=== PATIENT | female | born 1950 | race Two or more races ===

== ENCOUNTER 2024-03-23 13:58 | Emergency (ER) | payer MEDICAID, OTHER ==
[~2024-03-23] VITALS: Ht 149.9 cm; Wt 52.0 kg
[2024-03-23] MEDS: IOHEXOL 350 MG/ML 100ML IJ ONE (16:06)
[2024-03-23 16:24] LABS: Basophils # (auto) 0 10 ^3/uL (0-0.2); Basophils % (auto) 0.2 % (0.0-2.0); Eosinophils # (auto) 0 10 ^3/uL (0-0.8); Eosinophils % (auto) 0.1 % (0.0-7.0); Hematocrit 40.7 % (36.0-46.0); Hemoglobin 13.8 g/dL (12.2-16.2); Lymphocytes # (auto) 1.8 10 ^3/uL (0.4-5.4); Lymphocytes % (auto) 16.1 % (10.0-50.0); Mean Corpuscular Hemoglobin 30.2 pg (28.0-32.0); Mean Corpuscular Volume 88.8 fL (80.0-100.0); Monocytes % (auto) 9.1 % (0.0-12.0); Neutrophils # (auto) 8.3 10 ^3/uL (1.6-8.6); Neutrophils % (auto) 74.5 % (37.0-80.0); Platelet Count (auto) 318 10^3/uL (140-450); Red Blood Cells 4.58 10^6/uL (4.0-5.20); Red Cell Distribution Width 13.2 % (11.8-14.3); White Blood Cell 11.1 10^3/uL (4.4-10.8)
[2024-03-23 16:37] LABS: Alanine Aminotransferase 13 U/L (7-40); Albumin 4.4 g/dL (3.2-4.8); Alkaline Phosphatase 110 U/L (46-116); Anion Gap 10 (5-15); BUN/Creatinine Ratio 22.6 (10.0-20.0); Blood Urea Nitrogen 21 mg/dL (9-23); Calcium 10.3 mg/dL (8.7-10.4); Carbon Dioxide 28 mmol/L (20-31); Chloride 99 mmol/L (98-107); Magnesium 1.8 mg/dL (1.6-2.6); Potassium 4.3 mmol/L (3.5-5.1); Sodium 137 mmol/L (136-145)
[2024-03-23 16:38] LABS: Bilirubin, Total 0.9 mg/dL (0.2-1.0)
[2024-03-23 16:40] LABS: Aspartate Aminotransferase 9 U/L (13-40); Glucose 309 mg/dL (74-106)
--- NOTE | 2024-03-23 16:55 | ED.PDOC ---
HPI (NEURO) HPI Comments HPI: Poor Historian. History obtained from patient and the son. 33-year-old female presents to emergency department for evaluation of three day history of posterior neck and suboccipital pain with the associated bilateral shoulder discomfort and some mild sore throat. Patient complains of some weakness and occasional lightheadedness. VITALS: Temp: 98.1F RR: 16 02 sat : 96 % on room air HR: 106 BP: 116/85 PMH: DM, PSH: x2 Social history: denies tobacco use, denies ETOH use, denies drug use Medications: unknown Allergies: penicillins, REVIEW OF SYSTEMS: CONSTITUTIONAL: Denies acute: fever, diaphoresis, chills, HEAD: Denies acute: photophobia Eyes: Denies acute: Double vision, vision loss, eye pain, eye discharge. EARS: Denies acute: tinnitus, hearing loss, ear discharge, ear pain, THROAT: Denies acute: swelling, difficulty swallowing , pain with swallowing, change in voice. NECK: Denies acute: neck pain, neck swelling, stiff neck. HEART: Denies acute : chest pain, palpitations, LUNGS: Denies acute: SOB, wheezing, cough, hemoptysis ABDOMEN: Denies acute: abdominal pain, Nausea, Vomiting, diarrhea, melena , hematemesis, hematochezia SKIN: Denies acute: rash, redness, lesions, itchiness. EXTREMITIES: Denies acute: calf pain, numbness, tingling, weakness, denies pain in extremity. Denies acute: Low back pain. Neuro: Denies acute: focal neurological deficit, motor or sensory focal neurological deficit, tremors, seizure like activity, confusion, dizziness, change in mental status, loss of bowel or bladder function, cauda equina like symptoms. : Denies acute: dysuria, hematuria, flank pain, increase in urinary frequency. PSYCH: Denies acute: hallucination, suicidal ideation, homicidal ideation. FEMALE: Denies acute: abnormal vaginal bleeding, foul odor, unusual discharge. PHYSICAL EXAM: General: no acute distress, awake and alert. Head: normocephalic, atraumatic. Neck: supple, trachea is midline, no swelling. No submandibular lymphadenopathy Cervical spine: Palpation of the posterior midline of the cervical spine revea ls no focal swelling, erythema, focal tenderness to palpation. Patient has normal range of motion. Throat: Normal phonation. No erythema, no exudates, no obstruction, no drooling, no swelling. Eyes:, no erythema, no purulent discharge, no proptosis, no icterus. Heart: regular rate, regular rhythm, no significant murmur appreciated. Lungs: no apparent respiratory distress, Able to speak in full sentences. No wheezing, no rhonchi, no crackles. No stridors Clear to auscultation bilaterally. Abdomen: non tender to palpation, non distended, soft, no guarding, no rebound, + bowel sounds. Neuro: Awake, Alert, oriented to name, self, situation, follows commands GCS=15. Speech is normal. Skin: no petechia, no purpura, no cyanosis, non-pale, not jaundice. Lower extremities: --trace bilateral - Pitting edema no deformity, no focal swelling, no calf TTP. Makes eye contact. moves all four extremities. Face: no apparent facial droop. No nuchal rigidity, Kernig's sign, Brudzinski's sign, no meningeal signs. Chief Complaint: Headache Time Seen by MD: 14:25 Primary Care Provider: NOEL Reviewed Notes: Nurses Notes, Allergies Information Source: Patient, Relative Mode of Arrival: Wheelchair Brought in by: son Past Medical History PAST MEDICAL HISTORY: DM Was a procedure done? Was a procedure done?: No X-Ray, Labs, Meds, VS Vital Signs Date Time Temp Pulse Resp B/P (MAP) Pulse Ox O2 Delivery O2 Flow Rate FiO2 03/23/24 20:47 100.1 107 18 143/69 (93) 98 100.1 03/23/24 20:47 107 18 98 Room Air 03/23/24 20:30 100.1 03/23/24 15:00 98.1 106 16 166/85 (112) 96 Lab Test 03/23/24 20:21 03/23/24 20:15 03/23/24 18:00 03/23/24 15:50 Range/Units Influenza Type A Antigen Negative Negative Influenza Type B Antigen Negative Negative SARS-CoV-2 Antigen (Rapid) Negative NEGATIVE Group A Streptococcus Rapid Negative Urine Color Yellow Yellow Urine Clarity Clear Clear Urine pH 6.5 5.0-9.0 Urine Specific [place] > 1.035 H 1.001-1.035 Urine Protein 2+ H Negative Urine Ketones Trace Negative Urine Blood 1+ H Negative /uL Urine Nitrite Negative Negative Urine Bilirubin Negative Negative Urine Urobilinogen Normal Negative mg/dL Urine Leukocyte Esterase Negative Negative /uL Urine RBC 14 0 - 4 /hpf Urine WBC 2 0 - 5 /hpf Urine Squamous Epithelial Cells Few <5 /hpf Urine Bacteria Few H None Seen /hpf Urine Glucose 3+ H Normal mg/dL Troponin I High Sensitivity 3 L 3 L </=34 ng/L White Blood Count 11.1 H 4.4-10.8 10^3/uL Red Blood Count 4.58 4.0-5.20 10^6/uL Hemoglobin 13.8 12.2-16.2 g/dL Hematocrit 40.7 36.0-46.0 % Mean Corpuscular Volume 88.8 80.0-100.0 fL Mean Corpuscular Hemoglobin 30.2 28.0-32.0 pg Mean Corpuscular Hemoglobin Concent 34.0 32.0-36.0 g/dL Red Cell Distribution Width 13.2 11.8-14.3 % Platelet Count 318 140-450 10^3/uL Mean Platelet Volume 7.9 6.9-10.8 fL Neutrophils (%) (Auto) 74.5 37.0-80.0 % Lymphocytes (%) (Auto) 16.1 10.0-50.0 % Monocytes (%) (Auto) 9.1 0.0-12.0 % Eosinophils (%) (Auto) 0.1 0.0-7.0 % Basophils (%) (Auto) 0.2 0.0-2.0 % Neutrophils # (Auto) 8.3 1.6-8.6 10 ^3/uL Lymphocytes # (Auto) 1.8 0.4-5.4 10 ^3/uL Monocytes # (Auto) 1.0 0-1.3 10 ^3/uL Eosinophils # (Auto) 0 0-0.8 10 ^3/uL Basophils # (Auto) 0 0-0.2 10 ^3/uL Nucleated Red Blood Cells 0.0 % Sodium Level 137 136-145 mmol/L Potassium Level 4.3 3.5-5.1 mmol/L Chloride Level 99 98-107 mmol/L Carbon Dioxide Level 28 20-31 mmol/L Anion Gap 10 5-15 Blood Urea Nitrogen 21 9-23 mg/dL Creatinine 0.93 0.550-1.02 mg/dL Glomerular Filtration Rate Calc 65 >90 mL/min BUN/Creatinine Ratio 22.6 H 10.0-20.0 Serum Glucose 309 H 74-106 mg/dL Lactic Acid Level 1.2 0.4-2.0 mmol/L Calcium Level 10.3 8.7-10.4 mg/dL Magnesium Level 1.8 1.6-2.6 mg/dL Total Bilirubin 0.9 0.2-1.0 mg/dL Aspartate Amino Transferase (AST) 9 L 13-40 U/L Alanine Aminotransferase (ALT) 13 7-40 U/L Alkaline Phosphatase 110 46-116 U/L Total Protein 7.0 5.7-8.2 g/dL Albumin 4.4 3.2-4.8 g/dL Current Medications Medications (Trade) Dose Ordered Sig/Jesse Route Start Time Stop Time Status Last Admin Acetaminophen (Tylenol Tablet) 650 mg ONCE ONCE PO 03/23/24 20:30 03/23/24 20:31 DC 03/23/24 20:30 Sodium Chloride 1,000 ml @ 1,000 mls/hr Q1H ONCE IV 03/23/24 20:30 03/23/24 21:29 DC 03/23/24 20:34 [place] [address] Ph: [phone] DIAGNOSTIC IMAGING Diagnostic Imaging Report : [id number] Signed PATIENT: GAYLE HOUACCT: [id number] UNIT: [id number] : 1950 LOC: ER ROOM / BED: / AGE / SEX: 73 / F ADM STATUS: REG ER SERVICE 1551 ORDERING PHYSICIAN: ANNA MANUEL DO PROCEDURE(s): Anghedneck - ANGIO HEAD/Neck REASON: CHEN ORDER NUMBER(s): [id number], ACCESSION NUMBER(s): [id number] INDICATION: CHEN COMPARISON: CT head 03/23/2024 TECHNIQUE:CTA head and neck with intravenous contrast. 3D/MIP image postprocessing was performed and images were used for interpretation and reporting. Radiation Dose Information: CT Dose: CTDI volume is 7.76 mGy. Dose-length product is 778.53 mGy*cm FINDINGS: CTA neck: There is normal 3-vessel origin left-sided aortic arch. The bilateral subclavian arteries unremarkable. Nydo-ld-wcrjzgkl atherosclerotic calcification of the left proximal ICA without hemodynamically significant stenosis. Otherwise, bilateral common carotid arteries and bilateral cervical ICAs are unremarkable. Bilateral vertebral arteries unremarkable with left dominant vertebral artery. CTA HEAD: Bilateral ICAs, anterior communicating artery and bilateral MCAs unremarkable. Moderate to heavy atherosclerotic calcification of the cavernous ICAs with mild 2 moderate atherosclerotic calcification of the supraclinoid ICAs bilaterally. The petrous ICAs are clear. Bilateral music teacher, bilateral superior cerebellar arteries, basilar artery and right intracranial vertebral artery are unremarkable. Focal mild narrowing of the left proximal intracranial vertebral artery. Otherwise, the left intracranial vertebral artery is unremarkable and dominant. The dural venous sinuses opacify normally. No abnormal intracranial enhancement. Mild mucoperiosteal thickening of the ethmoid air cells. IMPRESSION: Moderate to heavy atherosclerotic calcification of the cavernous ICAs bilaterally with dcrr-wv-psqgefic atherosclerotic calcification of bilateral supraclinoid iCAs. Otherwise, no hemodynamically significant stenosis, aneurysm or vascular malformation involving the major intracranial and neck vessels. ATED BY: AMY TELLO DO DICTATED DATE/TIME: 03/23/241728 SIGNED BY: AMY TELLO DO SIGNED DATE/TIME: 03/23/241728 CC: [place] [address] Ph: [phone] DIAGNOSTIC IMAGING Diagnostic Imaging Report : [id number] Signed PATIENT: GAYLE HOUACCT: [id number] UNIT: [id number] : 1950 LOC: ER ROOM / BED: / AGE / SEX: 73 / F ADM STATUS: REG ER SERVICE 1551 ORDERING PHYSICIAN: ANNA MANUEL DO PROCEDURE(s): CTH - STROKE CTH REASON: CHEN ORDER NUMBER(s): [id number], ACCESSION NUMBER(s): [id number] EXAM: CT STROKE CTH INDICATION: CHEN TECHNIQUE: CT of the head without intravenous contrast. Radiation Dose : 1. Head: CT Dose: CTDI volume is 48.66 mGy. Dose-length product is 780.26 mGy*cm The dose indicators for CT are the volume Computed Tomography (CT) Dose Index (CTDIvol) and the Dose Length Product (DLP), and are measured in units of mGy and mGy-cm, respectively. These indicators are not patient dose, but values generated from the CT scanner acquisition factors. The report includes radiation exposure data for exposures received during this examination. COMPARISON: None FINDINGS: There is no evidence of acute intracranial hemorrhage, extra-axial collection, mass effect, midline shift, herniation or hydrocephalus. The ventricles, sulci and cisterns are age appropriate. The quan-white differentiation is intact. Patchy periventricular and subcortical white matter hypoattenuation is nonspecific but may be related to small vessel ischemic disease. The visualized paranasal sinuses and mastoid air cells are clear. The surrounding soft tissues and osseous structures are unremarkable. IMPRESSION: No acute intracranial abnormality. Radiation optimization: All CT scans at this facility use at least one of these dose optimization techniques: automated exposure control mA and/or kV adjustment per patient size (includes targeted exams where dose is matched to clinical indication) or iterative reconstruction. ATED BY: BENY LANIER MD DICTATED DATE/TIME: 03/23/241704 SIGNED BY: BENY LANIER MD SIGNED DATE/TIME: 03/23/241704 CC: [place] [address] Ph: [phone] DIAGNOSTIC IMAGING Diagnostic Imaging Report : [id number] Signed PATIENT: GAYLE HOUACCT: [id number] UNIT: [id number] : 1950 LOC: ER ROOM / BED: / AGE / SEX: 73 / F ADM STATUS: REG ER SERVICE 1550 ORDERING PHYSICIAN: ANNA MANUEL DO PROCEDURE(s): CXRP - CHEST PORTABLE REASON: CHEN HTN ORDER NUMBER(s): [id number], ACCESSION NUMBER(s): [id number] CHEST RADIOGRAPH Indication: CHEN HTN Technique: Single frontal view of the chest was obtained COMPARISON: None FINDINGS: Lines and Tubes: None Lungs: Clear Pleura: No effusion. No pneumothorax. Cardiomediastinal contours: Unremarkable Bones: Unremarkable IMPRESSION: No acute disease. ATED BY: BENY LANIER MD DICTATED DATE/TIME: 03/23/241716 SIGNED BY: BENY LANIER MD SIGNED DATE/TIME: 03/23/241716 CC: Time of 1ST Reevaluation: 21:29 Reevaluation 1ST: Resolved Patient Education/Counseling: Diagnosis, Treatment Family Education/Counseling: Diagnosis, Treatment Comments MDM: Patient presented with the above HPI.----- posterior neck and suboccipital pain -workup was initiated. patient was found with the above mentioned diagnosis. the following medications were ordered: IV contrast the following tests were ordered: CT angio head and neck, CT head CVA, troponin x3, EKG x 1, chest x-ray, UA, magnesium, lactic acid, CBC, CMP, Patient ED course and VS have been stabilized. Patient has been reassessed in the ED and remained in a stable condition. Patient has been observed in the ED adequate length of time to insure improvement/stability. Escalation of care considered: Consideration of escalation to observation or admission. patient was DISCHARGED after further evaluation and treatment of their presentation. All the reports of any imaging studies that were ordered by myself were reviewed by myself. Departure 1 Departure Time of Disposition: 20:19 Impression: Primary Impression: Headache Additional Impressions: Sore throat Hyperglycemia Disposition: 01 HOME / SELF CARE / HOMELESS Admit to: Tele Condition: Stable Additional Instructions: Additional discharge instructions: You MUST follow-up with your primary care/family doctor in 1 to 2 days. If you are unable to see your primary care/family doctor, please return to our emergency room for re-assessment and re-evaluation in 1 to 2 days. Return to the emergency room here in our facility or to the nearest ER [facility] if your symptoms change or worsen. CONSULTATIONS: you MUST Follow-up for consultation as soon as possible with: -neurology and ENT in 1-2 days. Please call for appointment. You MUST call the consultants office yourself to make an appointment. You may need to arrange that through your insurance and/or your primary/family doctor. If you are unable to see the economic consultant in 1 to 2 days, you must return to our emergency room (or any other ER of your choice) for re-assessment and re- evaluation. Adequate fluid hydration. Below is a copy of your radiological report for follow up: [place] [phone] Ph: [phone] DIAGNOSTIC IMAGING Diagnostic Imaging Report : [id number] Signed PATIENT: GAYLE HOU ACCT: [id number] UNIT: [id number] : 1950 LOC: ER ROOM / BED: / AGE / SEX: 73 / F ADM STATUS: REG ER SERVICE 1551 ORDERING PHYSICIAN: ANNA MANUEL DO PROCEDURE(s): Anghedneck - ANGIO HEAD/Neck REASON: CHEN ORDER NUMBER(s): [id number], ACCESSION NUMBER(s): [id number] INDICATION: CHEN COMPARISON: CT head 03/23/2024 TECHNIQUE:CTA head and neck with intravenous contrast. 3D/MIP image postprocessing was performed and images were used for interpretation and reporting. Radiation Dose Information: CT Dose: CTDI volume is 7.76 mGy. Dose-length product is 778.53 mGy*cm FINDINGS: CTA neck: There is normal 3-vessel origin left-sided aortic arch. The bilateral subclavian arteries unremarkable. Tzop-ur-ybdoibse atherosclerotic calcification of the left proximal ICA without hemodynamically significant stenosis. Otherwise, bilateral common carotid arteries and bilateral cervical ICAs are unremarkable. Bilateral vertebral arteries unremarkable with left dominant vertebral artery. CTA HEAD: Bilateral ICAs, anterior communicating artery and bilateral MCAs unremarkable. Moderate to heavy atherosclerotic calcification of the cavernous ICAs with mild 2 moderate atherosclerotic calcification of the supraclinoid ICAs bilaterally. The petrous ICAs are clear. Bilateral music teacher, bilateral superior cerebellar arteries, basilar artery and right intracranial vertebral artery are unremarkable. Focal mild narrowing of the left proximal intracranial vertebral artery. Otherwise, the left intracranial vertebral artery is unremarkable and dominant. The dural venous sinuses opacify normally. No abnormal intracranial enhancement. Mild mucoperiosteal thickening of the ethmoid air cells. IMPRESSION: Moderate to heavy atherosclerotic calcification of the cavernous ICAs bandar aterally with amqq-av-utdelsxg atherosclerotic calcification of bilateral supraclinoid iCAs. Otherwise, no hemodynamically significant stenosis, aneurysm or vascular malformation involving the major intracranial and neck vessels. ATED BY: AMY TELLO DO DICTATED DATE/TIME: 03/23/241728 SIGNED BY: AMY TELLO DO SIGNED DATE/TIME: 03/23/241728 CC: [place] [address] Ph: [phone] DIAGNOSTIC IMAGING Diagnostic Imaging Report : [id number] Signed PATIENT: GAYLE HOU ACCT: [id number] UNIT: [id number] : 1950 LOC: ER ROOM / BED: / AGE / SEX: 73 / F ADM STATUS: REG ER SERVICE 1551 ORDERING PHYSICIAN: ANNA MANUEL DO PROCEDURE(s): CTH - STROKE CTH REASON: CHEN ORDER NUMBER(s): [id number], ACCESSION NUMBER(s): [id number] EXAM: CT STROKE CTH INDICATION: CHEN TECHNIQUE: CT of the head without intravenous contrast. Radiation Dose : 1. Head: CT Dose: CTDI volume is 48.66 mGy. Dose-length product is 780.26 mGy*cm The dose indicators for CT are the volume Computed Tomography (CT) Dose Index (CTDIvol) and the Dose Length Product (DLP), and are measured in units of mGy and mGy-cm, respectively. These indicators are not patient dose, but values generated from the CT scanner acquisition factors. The report includes radiation exposure data for exposures received during this examination. COMPARISON: None FINDINGS: There is no evidence of acute intracranial hemorrhage, extra-axial collection, mass effect, midline shift, herniation or hydrocephalus. The ventricles, sulci and cisterns are age appropriate. The quan-white differentiation is intact. Patchy periventricular and subcortical white matter hypoattenuation is nonspecific but may be related to small vessel ischemic disease. The visualized paranasal sinuses and mastoid air cells are clear. The surrounding soft tissues and osseous structures are unremarkable. IMPRESSION: No acute intracranial abnormality. Radiation optimization: All CT scans at this facility use at least one of these dose optimization techniques: automated exposure control mA and/or kV adjustment per patient size (includes targeted exams where dose is matched to clinical indication) or iterative reconstruction. ATED BY: BENY LANIER MD DICTATED DATE/TIME: 03/23/241704 SIGNED BY: BENY LANIER MD SIGNED DATE/TIME: 03/23/241704 CC: [place] [address] Ph: [phone] DIAGNOSTIC IMAGING Diagnostic Imaging Report : [id number] Signed PATIENT: GAYLE HOU ACCT: [id number] UNIT: [id number] : 1950 LOC: ER ROOM / BED: / AGE / SEX: 73 / F ADM STATUS: REG ER SERVICE 1550 ORDERING PHYSICIAN: ANNA MANUEL DO PROCEDURE(s): CXRP - CHEST PORTABLE REASON: CHEN HTN ORDER NUMBER(s): [id number], ACCESSION NUMBER(s): [id number] CHEST RADIOGRAPH Indication: CHEN HTN Technique: Single frontal view of the chest was obtained COMPARISON: None FINDINGS: Lines and Tubes: None Lungs: Clear Pleura: No effusion. No pneumothorax. Cardiomediastinal contours: Unremarkable Bones: Unremarkable IMPRESSION: No acute disease. ATED BY: BENY LANIER MD DICTATED DATE/TIME: 03/23/241716 SIGNED BY: BENY LANIER MD SIGNED DATE/TIME: 03/23/241716 CC: e-Prescriptions Cephalexin Monohydrate (Cephalexin) 500 Mg Cap 500 MG PO Q8HR for 7 Days, #14 MG Prov: ANNA MANUEL DO 03/23/24 Discharged With: Self, Relative I personally scribed for ANNA MANUEL DO ([facility]) on 03/23/24 at 16:55. El ectronically submitted by Pelon Pineda (AMY). I personally scribed for ANNA MANUEL DO ([facility]) on 03/23/24 at 17:35. Electronically submitted by Pelon Pineda (AMY). I personally scribed for ANNA MANUEL DO ([facility]) on 03/23/24 at 17:37. Electronically [facility] by [facility]ined[facility] ([facility] I personally scribed for ANNA MANUEL DO ([facility]) on 03/23/24 at 17:41. Electronically submitted by Pelon Pineda ([facility] I personally scribed for ANNA MANUEL DO ([facility]) on 03/23/24 at 21:18. Electronically submitted by Pelon Pineda ([facility] I personally scribed for ANNA MANUEL DO ([facility]) on 03/23/24 at 21:45. Electronically submitted by Pelon Pineda ([facility]). ANNA MANUEL DO Mar 23, 2024 16:55
--- NOTE | 2024-03-23 17:09 | DVH ---
EXAM: CT STROKE CTH INDICATION: CHEN TECHNIQUE: CT of the head without intravenous contrast. Radiation Dose : 1. Head: CT Dose: CTDI volume is 48.66 mGy. Dose-length product is 780.26 mGy*cm The dose indicators for CT are the volume Computed Tomography (CT) Dose Index (CTDIvol) and the Dose Length Product (DLP), and are measured in units of mGy and mGy-cm, respectively. These indicators are not patient dose, but values generated from the CT scanner acquisition factors. The report includes radiation exposure data for exposures received during this examination. COMPARISON: None FINDINGS: There is no evidence of acute intracranial hemorrhage, extra-axial collection, mass effect, midline s hift, herniation or hydrocephalus. The ventricles, sulci and cisterns are age appropriate. The quan-white differentiation is intact. Patchy periventricular and subcortical white matter hypoattenuation is nonspecific but may be related to small vessel ischemic disease. The visualized paranasal sinuses and mastoid air cells are clear. The surrounding soft tissues and osseous structures are unremarkable. IMPRESSION: No acute intracranial abnormality. Radiation optimization: All CT scans at this facility use at least one of these dose optimization kushal hniques: automated exposure control mA and/or kV adjustment per patient size (includes targeted exam s where dose is matched to clinical indication) or iterative reconstruction.
--- NOTE | 2024-03-23 17:20 | DVH ---
CHEST RADIOGRAPH Indication: CHEN HTN Technique: Single frontal view of the chest was obtained COMPARISON: None FINDINGS: Lines and Tubes: None Lungs: Clear Pleura: No effusion. No pneumothorax. Cardiomediastinal contours: Unremarkable Bones: Unremarkable IMPRESSION: No acute disease.
--- NOTE | 2024-03-23 17:31 | DVH ---
INDICATION: CHEN COMPARISON: CT head 03/23/2024 TECHNIQUE:CTA head and neck with intravenous contrast. 3D/MIP image postprocessing was performed and images were used for interpretation and reporting. Radiation Dose Information: CT Dose: CTDI volume is 7.76 mGy. Dose-length product is 778.53 mGy*cm FINDINGS: CTA neck: There is normal 3-vessel origin left-sided aortic arch. The bilateral subclavian arteries unremarkabl e. Sadg-go-nfjzlieh atherosclerotic calcification of the left proximal ICA without hemodynamically sign ificant stenosis. Otherwise, bilateral common carotid arteries and bilateral cervical ICAs are unrem arkable. Bilateral vertebral arteries unremarkable with left dominant vertebral artery. CTA HEAD: Bilateral ICAs, anterior communicating artery and bilateral MCAs unremarkable. Moderate to heavy atherosclerotic calcification of the cavernous ICAs with mild 2 moderate atheroscle rotic calcification of the supraclinoid ICAs bilaterally. The petrous ICAs are clear. Bilateral office sweeper, bilateral superior cerebellar arteries, basilar artery and right intracranial vertebr al artery are unremarkable. Focal mild narrowing of the left proximal intracranial vertebral artery. Otherwise, the left intracranial vertebral artery is unremarkable and dominant. The dural venous sinuses opacify normally. No abnormal intracranial enhancement. Mild mucoperiosteal thickening of the ethmoid air cells. IMPRESSION: Moderate to heavy atherosclerotic calcification of the cavernous ICAs bilaterally with whuy-te-gsbihg te atherosclerotic calcification of bilateral supraclinoid iCAs. Otherwise, no hemodynamically signif icant stenosis, aneurysm or vascular malformation involving the major intracranial and neck vessels.
[2024-03-23] MEDS ORDERED: HYDROcodone-ACET 5/325MG TAB PO ONE (19:45)
[2024-03-23] MEDS: cefTRIAXone 1GM/50ML D5W 50 ML IV ONE (20:30)
[2024-03-23] MEDS: ACETAMINOPHEN 325 MG TAB PO ONE (20:30)
[2024-03-23] MEDS: SODIUM CHLORIDE 0.9% 1,000 ML IV ONE (20:34)
[2024-03-23 20:47] VITALS: BP 143/69; PULSE 107; RESP 18; O2SAT 98
[2024-03-23 20:59] LABS: Urine Bacteria FEW /hpf (None Seen); Urine Blood 1+ /uL (Negative); Urine Clarity Clear (Clear); Urine Color Yellow (Yellow); Urine Protein, UAD 2+ (Negative); Urine Specific Gravity > 1.035 (1.001-1.035); Urine Urobilinogen Normal (Negative); Urine WBC 2 /hpf (0 - 5); Urine pH 6.5 (5.0-9.0)
[2024-03-23 21:11] LABS: Rapid Strep A Screen-Throat Negative
[2024-03-23 21:12] LABS: COVID19 ANTIGEN SOFIA FIA NEGATIVE (NEGATIVE); Rapid Influenza A Negative (Negative); Rapid Influenza B Negative (Negative)
[2024-03-23 21:30] VITALS: TEMP 98.5
[2024-03-23] MEDS ORDERED: CEPH500C PO (21:44)
== END 2024-03-23 22:21 | disposition home or self-care (01) ==
LOC: ER 13:58
DX: E11.65 Type 2 diabetes mellitus with hyperglycemia (principal); J02.9 Acute pharyngitis, unspecified; R51.9 Headache, unspecified; Z88.0 Allergy status to penicillin; Z98.890 Other specified postprocedural states; Z20.822 Contact with and (suspected) exposure to COVID-19
CPT/HCPCS: 36415; 70450; 70496; 71045; 80053; 81001; 83605; 83735; 84484; 85025; 87070; 87426; 87804; 87880; 96360; 96361; 99285; J7030; Q9967; 87077

== ENCOUNTER → 2024-05-21 | Outpatient (CLI) | payer MEDICAID ==
[~2024-05-21] MED LIST: CEPH500C PO
[2024-05-21 11:17] LABS: Basophils # (auto) 0 10 ^3/uL (0-0.2); Basophils % (auto) 0.5 % (0.0-2.0); Eosinophils # (auto) 0.3 10 ^3/uL (0-0.8); Eosinophils % (auto) 4.2 % (0.0-7.0); Hematocrit 40.1 % (36.0-46.0); Hemoglobin 13.5 g/dL (12.2-16.2); Lymphocytes # (auto) 2.7 10 ^3/uL (0.4-5.4); Lymphocytes % (auto) 43.2 % (10.0-50.0); Mean Corpuscular Hemoglobin 29.5 pg (28.0-32.0); Mean Corpuscular Hgb Conc. 33.6 g/dL (32.0-36.0); Monocytes # (auto) 0.6 10 ^3/uL (0-1.3); Neutrophils # (auto) 2.7 10 ^3/uL (1.6-8.6); Neutrophils % (auto) 43.1 % (37.0-80.0); Nucleated Red Blood Cells % 0.2 %; Platelet Count (auto) 228 10^3/uL (140-450); Red Blood Cells 4.56 10^6/uL (4.0-5.20); Red Cell Distribution Width 13.7 % (11.8-14.3); White Blood Cell 6.2 10^3/uL (4.4-10.8)
[2024-05-21 11:51] LABS: Alanine Aminotransferase 13 U/L (7-40); Anion Gap 8 (5-15); Aspartate Aminotransferase 14 U/L (13-40); Blood Urea Nitrogen 21 mg/dL (9-23); Carbon Dioxide 27 mmol/L (20-31); Chloride 103 mmol/L (98-107); Potassium 4.1 mmol/L (3.5-5.1); Sodium 138 mmol/L (136-145)
[2024-05-21 11:53] LABS: Albumin 4.4 g/dL (3.2-4.8)
[2024-05-21 11:54] LABS: Bilirubin, Total 0.6 mg/dL (0.2-1.0); Total Protein 6.6 g/dL (5.7-8.2)
[2024-05-21 12:03] LABS: Calcium 10.5 mg/dL (8.7-10.4); Glucose 146 mg/dL (74-106)
[2024-05-21 12:30] LABS: Alkaline Phosphatase 87 U/L (46-116)
[2024-05-22 13:33] LABS: Triglycerides 96 mg/dL (< 150)
[2024-05-22 13:34] LABS: Cholesterol 190 mg/dL (< 200)
[2024-05-22 13:37] LABS: HDL Cholesterol 66 mg/dL (40-59); LDL Cholesterol 109 mg/dL (< 100)
== END | disposition home or self-care (01) ==
LOC: LAB 09:54
DX: I12.9 Hypertensive chronic kidney disease with stage 1 through stage 4 chronic kidney disease, or unspecified chronic kidney disease (principal); N18.30 Chronic kidney disease, stage 3 unspecified; E11.22 Type 2 diabetes mellitus with diabetic chronic kidney disease; E11.65 Type 2 diabetes mellitus with hyperglycemia; E78.5 Hyperlipidemia, unspecified
CPT/HCPCS: 36415; 80053; 80061; 82043; 83036; 85025

== ENCOUNTER 2024-07-17 15:46 | Inpatient (IN) | payer MEDICAID ==
[~2024-07-17] VITALS: Ht 154.9 cm; Wt 52.3 kg
--- NOTE | 2024-07-17 16:04 | ED.PDOC ---
History of Present Illness HPI Comments HPI: Poor Historian. 74-year-old female presents to emergency department for evaluation of two day history of generalized weakness with the associated nonspecific dizziness. The patient unable to get up and ambulate secondary to weakness. Patient went to urgent Care was sent here for further evaluation. Patient has some associated nausea and vomiting nonbilious nonbloody. Denies any focal neurological deficits. Past Medical History: Diabetes hypertension Past Surgical History: REVIEW OF SYSTEMS: CONSTITUTIONAL: Denies acute: fever, diaphoresis, chills, HEAD: Denies acute: headache, photophobia Eyes: Denies acute: Double vision, vision loss, eye pain, eye discharge. EARS: Denies acute: tinnitus, hearing loss, ear discharge, ear pain, THROAT: Denies acute: sore throat, swelling, difficulty swallowing , pain with swallowing, change in voice. NECK: Denies acute: neck pain, neck swelling, stiff neck. HEART: Denies acute : chest pain, palpitations, LUNGS: Denies acute: SOB, wheezing, cough, hemoptysis ABDOMEN: Denies acute: abdominal pain, diarrhea, melena , hematemesis, hematochezia SKIN: Denies acute: rash, redness, lesions, itchiness. EXTREMITIES: Denies acute: calf pain, numbness, tingling, weakness, denies pain in extremity. Denies acute: Low back pain. Neuro: Denies acute: focal neurological deficit, motor or sensory focal neurological deficit, tremors, seizure like activity, confusion, change in mental status, loss of bowel or bladder function, cauda equina like symptoms. : Denies acute: dysuria, hematuria, flank pain, increase in urinary frequency. PSYCH: Denies acute: hallucination, suicidal ideation, homicidal ideation. FEMALE: Denies acute: abnormal vaginal bleeding, foul odor, unusual discharge. PHYSICAL EXAM: General: ----mild----acute distress, awake and alert. Head: normocephalic, atraumatic. Neck: supple, trachea is midline, no swelling. Throat: Normal phonation. Eyes:, no erythema, no purulent discharge, no proptosis, no icterus. Heart: regular rate, regular rhythm, no significant murmur appreciated. Lungs: no apparent respiratory distress, Able to speak in full sentences. No wheezing, no rhonchi, no crackles. No stridors Clear to auscultation bilaterally. Abdomen: non tender to palpation, non distended, soft, no guarding, no rebound, + bowel sounds. Neuro: Awake, Alert, oriented to name, self, situation, follows commands GCS=15. Speech is normal. Skin: no petechia, no purpura, no cyanosis, slightly pale, not jaundice. Lower extremities: --no - Pitting edema no deformity, no focal swelling, no calf TTP. Makes eye contact. moves all four extremities. Able to raise bilateral lower extremities against gravity and hold it. Face: no apparent facial droop. PERRLA, EOM-I CN 2-12 are grossly intact, No nystagmus. ED COURSE: Time Seen by MD: 16:01 Primary Care Provider: NOEL Reviewed Notes: Nurses Notes, Allergies Allergies: Coded Allergies: Penicillins (Verified Allergy, Unknown, 03/23/24) Home Meds Active Scripts Cephalexin Monohydrate (Cephalexin) 500 Mg Cap, 500 MG PO Q8HR for 7 Days, #14 MG Prov:KALEBANNA Lofton DO 03/23/24 Information Source: Patient, Relative Past Medical History PAST MEDICAL HISTORY: DM Was a procedure done? Was a procedure done?: No Differential Dx Considerations may include: Includes but not limited to thyroid disease, encephalopathy, electrolyte abnormality, sepsis, infection, intracranial pathology, drug adverse effects, arrhythmia, kidney insufficiency, ACS, CVA, malignancy, anemia X-Ray, Labs, Meds, VS Vital Signs Date Time Temp Pulse Resp B/P (MAP) Pulse Ox O2 Delivery O2 Flow Rate FiO2 07/17/24 20:58 97.8 72 16 117/70 (86) 95 97.8 07/17/24 16:47 94 07/17/24 16:39 98.2 93 20 130/69 (89) 98 98.2 Lab Test 07/17/24 19:50 07/17/24 19:19 07/17/24 17:26 07/17/24 16:40 Range/Units Urine Color Yellow Yellow Urine Clarity Clear Clear Urine pH 5.5 5.0-9.0 Urine Specific [place] 1.026 1.001-1.035 Urine Protein 1+ H Negative Urine Ketones 1+ H Negative Urine Blood Negative Negative /uL Urine Nitrite Negative Negative Urine Bilirubin Negative Negative Urine Urobilinogen Normal Negative mg/dL Urine Leukocyte Esterase Negative Negative /uL Urine RBC 2 0 - 4 /hpf Urine Microscopic WBC 3 0-5 /HPF Urine Squamous Epithelial Cells Few <5 /hpf Urine Bacteria None seen None Seen /hpf Urine Mucus Few None Seen Urine Glucose 4+ H Normal mg/dL Troponin I High Sensitivity 5 7 </=34 ng/L POC Glucose 260 H 70-106 mg/dl Test 07/17/24 16:16 Range/Units White Blood Count 7.9 4.4-10.8 10^3/uL Red Blood Count 5.07 4.0-5.20 10^6/uL Hemoglobin 15.1 12.2-16.2 g/dL Hematocrit 45.1 36.0-46.0 % Mean Corpuscular Volume 88.9 80.0-100.0 fL Mean Corpuscular Hemoglobin 29.8 28.0-32.0 pg Mean Corpuscular Hemoglobin Concent 33.5 32.0-36.0 g/dL Red Cell Distribution Width 13.9 11.8-14.3 % Platelet Count 226 140-450 10^3/uL Mean Platelet Volume 8.5 6.9-10.8 fL Neutrophils (%) (Auto) 86.6 H 37.0-80.0 % Lymphocytes (%) (Auto) 10.8 10.0-50.0 % Monocytes (%) (Auto) 2.4 0.0-12.0 % Eosinophils (%) (Auto) 0.1 0.0-7.0 % Basophils (%) (Auto) 0.1 0.0-2.0 % Neutrophils # (Auto) 6.9 1.6-8.6 10 ^3/uL Lymphocytes # (Auto) 0.9 0.4-5.4 10 ^3/uL Monocytes # (Auto) 0.2 0-1.3 10 ^3/uL Eosinophils # (Auto) 0 0-0.8 10 ^3/uL Basophils # (Auto) 0 0-0.2 10 ^3/uL Nucleated Red Blood Cells 0.0 % Sodium Level 138 136-145 mmol/L Potassium Level 4.1 3.5-5.1 mmol/L Chloride Level 103 98-107 mmol/L Carbon Dioxide Level 27 20-31 mmol/L Anion Gap 8 5-15 Blood Urea Nitrogen 17 9-23 mg/dL Creatinine 0.83 0.550-1.02 mg/dL Glomerular Filtration Rate Calc 73 >90 mL/min BUN/Creatinine Ratio 20.5 H 10.0-20.0 Serum Glucose 283 H 74-106 mg/dL Lactic Acid Level 1.3 0.4-2.0 mmol/L Calcium Level 10.4 8.7-10.4 mg/dL Magnesium Level 2.0 1.6-2.6 mg/dL Total Bilirubin 0.7 0.2-1.0 mg/dL Aspartate Amino Transferase (AST) 14 13-40 U/L Alanine Aminotransferase (ALT) 14 7-40 U/L Alkaline Phosphatase 111 46-116 U/L Troponin I High Sensitivity 5 </=34 ng/L B-Type Natriuretic Peptide 39.36 0-100 pg/mL Total Protein 7.5 5.7-8.2 g/dL Albumin 4.7 3.2-4.8 g/dL Current Medications Medications (Trade) Dose Ordered Sig/Jesse Route Start Time Stop Time Status Last Admin Sodium Chloride 1,000 ml @ 1,000 mls/hr Q1H ONCE IV 07/17/24 18:15 07/17/24 19:14 DC 07/17/24 18:15 [place] [address] Ph: [phone] DIAGNOSTIC IMAGING Diagnostic Imaging Report : [id number] Signed PATIENT: GAYLE PHILLIPS ACCT: [id number] UNIT: [id number] : 1950 LOC: CENTRAL ROOM / BED: [address] [place] [address] AGE / SEX: 74 / F ADM STATUS: ADM IN SERVICE 1218 ORDERING PHYSICIAN: TIM VARGHESE RESIDENT PROCEDURE(s): [place] - ANGIO HEAD/Neck REASON: rule out posterior circulation stroke ORDER NUMBER(s): [id number], ACCESSION NUMBER(s): [id number] Procedure: CT ANGIO HEAD/Neck HISTORY: rule out posterior circulation stroke Comparison Study: CT ANGIO HEAD/NECK on DOS: 03/23/24 Exam Date:07/18/2024 12:57 PM TECHNIQUE: CTA head without and with intravenous contrast. CTA neck with intravenous contrast. 3D image postprocessing was performed and images were used for interpretation and reporting. Radiation Dose : CT Dose: CTDI volume is 32.31 mGy. Dose-length product is 1048.98 mGy*cm FINDINGS: CTA head: There is normal enhancement of the visualized distal internal carotid, anterior and middle cerebral arteries. There is a normal anterior communicating artery complex. There are bilateral posterior communicating arteries. The vertebral, basilar, cerebellar and posterior cerebral arteries are within normal limits. The early parenchymal enhancement is grossly unremarkable. The visualized intr acranial venous structures are grossly unremarkable. CTA neck: The visualized thoracic aortic arch and proximal great vessels are unremarkable. The left common, internal and external carotid arteries are within normal limits. The right common, internal and external carotid arteries are within normal limits. The cervical segments of the right and left vertebral arteries are within normal limits. The limited visualized lung apices are clear. The surrounding soft tissues and osseous structures are otherwise unremarkable. IMPRESSION: No evidence of hemodynamically significant intracranial stenosis, proximal occlusion or aneurysm. No evidence of hemodynamically significant cervical stenosis or dissection. CAROTID STENOSIS REFERENCE Distal internal carotid artery diameter as the denominator for stenosis measurement: MILD = <50% stenosis. MODERATE = 50-69% stenosis. SEVERE = 70-89% stenosis. CRITICAL = 90-99% stenosis. OCCLUDED = 100% stenosis. All CT scans at this medical facility are performed using dose modulation techniques as appropriate to a performed exam including the following: Automated exposure control was utilized; adjustment of the MA and/or KV according to patient size; and use of iterative reconstruction technique. ATED BY: MEENA MIRELES MD DICTATED DATE/TIME: 07/18/241424 SIGNED BY: MEENA MIRELES MD SIGNED DATE/TIME: 07/18/241424 CC: [place] [address] Ph: [phone] DIAGNOSTIC IMAGING Diagnostic Imaging Report : [id number] Signed PATIENT: GAYLE PHILLIPS ACCT: [id number] UNIT: [id number] : 1950 LOC: ER ROOM / BED: / AGE / SEX: 74 / F ADM STATUS: REG ER SERVICE 1557 ORDERING PHYSICIAN: ANNA MANUEL DO PROCEDURE(s): HWOCT - HEAD WITHOUT CONTRAST REASON: weak/dizzy/n/v ORDER NUMBER(s): [id number], ACCESSION NUMBER(s): [id number] EXAM: CT HEAD WITHOUT CONTRAST INDICATION: weak/dizzy/n/v TECHNIQUE: CT of the head without intravenous contrast. Radiation Dose : 1. Head: CT Dose: CTDI volume is 51 mGy. Dose-length product is 101 mGy*cm The dose indicators for CT are the volume Computed Tomography (CT) Dose Index (CTDIvol) and the Dose Length Product (DLP), and are measured in units of mGy and mGy-cm, respectively. These indicators are not patient dose, but values generated from the CT scanner acquisition factors. The report includes radiation exposure data for exposures received during this examination. COMPARISON: CT STROKE CTH on DOS: 03/23/24 FINDINGS: There is no evidence of acute intracranial hemorrhage, extra-axial collection, mass effect, midline shift, herniation or hydrocephalus. The ventricles, sulci and cisterns are age appropriate. The quan-white differentiation is intact. The visualized paranasal sinuses and mastoid air cells are clear. The surrounding soft tissues and osseous structures are unremarkable. IMPRESSION: No acute intracranial abnormality. Radiation optimization: All CT scans at this facility use at least one of these dose optimization techniques: automated exposure control mA and/or kV adjustment per patient size (includes targeted exams where dose is matched to clinical indication) or iterative reconstruction. ATED BY: BENY LANIER MD DICTATED DATE/TIME: 07/17/241643 SIGNED BY: BENY LANIER MD SIGNED DATE/TIME: 07/17/241643 CC: [place] [address] Ph: [phone] DIAGNOSTIC IMAGING Diagnostic Imaging Report : [id number] Signed PATIENT: KEITH TODDLESPAUL ACCT: [id number] UNIT: [id number] : 1950 LOC: ER ROOM / BED: / AGE / SEX: 74 / F ADM STATUS: REG ER SERVICE 1557 ORDERING PHYSICIAN: ANNA MANUEL DO PROCEDURE(s): CXRP - CHEST PORTABLE REASON: weak/dizzy/n/v ORDER NUMBER(s): [id number], ACCESSION NUMBER(s): [id number] CHEST RADIOGRAPH Indication: weak/dizzy/n/v Technique: Single frontal view of the chest was obtained COMPARISON: XY CHEST PORTABLE on DOS: 03/23/24 FINDINGS: Lines and Tubes: None Lungs: Clear Pleura: No effusion. No pneumothorax. Cardiomediastinal contours: Unremarkable Bones: Unremarkable IMPRESSION: No acute disease. ATED BY: BENY LANIER MD DICTATED DATE/TIME: 07/17/24 1638 SIGNED BY: BENY LANIER MD SIGNED DATE/TIME: 07/17/248 CC: Time of 1ST Reevaluation: 00:00 Reevaluation 1ST: Improved Patient Education/Counseling: Diagnosis, Treatment Family Education/Counseling: Diagnosis, Treatment Comments Patient presented with the above HPI.--generalized weakness----workup was initiated. patient was found with the above mentioned diagnosis. the following medications were ordered: please refer to order lists of meds and tests obtained by myself Dr. Manuel. Patient ED course and VS have been stabilized. Patient has been reassessed in the ED and remained in a stable condition. Pertinent incidental findings were discussed with the patient and/or family. Patient/family voices understanding and is agreeable with plan. Patient has been observed in the ED adequate length of time to insure improvement/stability. Escalation of care considered: Consideration of escalation to observation or admission Patient has no apparent focal neurological deficits. Onset of symptoms at least two days ago. Patient was ADMITTED to the medicine team for further evaluation and treatment of their presentation. All the reports of any imaging studies that were ordered by myself were reviewed by myself. Departure 1 Departure Time of Disposition: 19:48 Impression: Primary Impression: Generalized weakness Additional Impression: Dizziness Disposition: ADMITTED INPATIENT Admit to: Tele Condition: Guarded Discharged With: Self, Relative Critical Care Note Critical Care Time?: No Heart Score Heart Score: Heart Score Response (Comments) Value History Slightly Suspicious 0 EKG Normal 0 Age >65 2 Risk Factors 1 or 2 risk factors 1 Troponin Normal limit 0 Total 3 ANNA MANUEL DO Jul 17, 2024 16:04
[2024-07-17 16:34] LABS: Basophils # (auto) 0 10 ^3/uL (0-0.2); Basophils % (auto) 0.1 % (0.0-2.0); Eosinophils # (auto) 0 10 ^3/uL (0-0.8); Eosinophils % (auto) 0.1 % (0.0-7.0); Hematocrit 45.1 % (36.0-46.0); Hemoglobin 15.1 g/dL (12.2-16.2); Lymphocytes # (auto) 0.9 10 ^3/uL (0.4-5.4); Lymphocytes % (auto) 10.8 % (10.0-50.0); Mean Corpuscular Hemoglobin 29.8 pg (28.0-32.0); Mean Corpuscular Hgb Conc. 33.5 g/dL (32.0-36.0); Mean Corpuscular Volume 88.9 fL (80.0-100.0); Monocytes # (auto) 0.2 10 ^3/uL (0-1.3); Monocytes % (auto) 2.4 % (0.0-12.0); Neutrophils # (auto) 6.9 10 ^3/uL (1.6-8.6); Neutrophils % (auto) 86.6 % (37.0-80.0); Platelet Count (auto) 226 10^3/uL (140-450); Red Blood Cells 5.07 10^6/uL (4.0-5.20); Red Cell Distribution Width 13.9 % (11.8-14.3); White Blood Cell 7.9 10^3/uL (4.4-10.8)
--- NOTE | 2024-07-17 16:41 | DVH ---
CHEST RADIOGRAPH Indication: weak/dizzy/n/v Technique: Single frontal view of the chest was obtained COMPARISON: XY CHEST PORTABLE on DOS: 03/23/24 FINDINGS: Lines and Tubes: None Lungs: Clear Pleura: No effusion. No pneumothorax. Cardiomediastinal contours: Unremarkable Bones: Unremarkable IMPRESSION: No acute disease.
[2024-07-17 16:46] LABS: Alanine Aminotransferase 14 U/L (7-40); Albumin 4.7 g/dL (3.2-4.8); Alkaline Phosphatase 111 U/L (46-116); Anion Gap 8 (5-15); Aspartate Aminotransferase 14 U/L (13-40); BUN/Creatinine Ratio 20.5 (10.0-20.0); Bilirubin, Total 0.7 mg/dL (0.2-1.0); Blood Urea Nitrogen 17 mg/dL (9-23); Calcium 10.4 mg/dL (8.7-10.4); Carbon Dioxide 27 mmol/L (20-31); Chloride 103 mmol/L (98-107); Potassium 4.1 mmol/L (3.5-5.1); Sodium 138 mmol/L (136-145); Total Protein 7.5 g/dL (5.7-8.2)
--- NOTE | 2024-07-17 16:47 | DVH ---
EXAM: CT HEAD WITHOUT CONTRAST INDICATION: weak/dizzy/n/v TECHNIQUE: CT of the head without intravenous contrast. Radiation Dose : 1. Head: CT Dose: CTDI volume is 51 mGy. Dose-length product is 101 mGy*cm The dose indicators for CT are the volume Computed Tomography (CT) Dose Index (CTDIvol) and the Dose Length Product (DLP), and are measured in units of mGy and mGy-cm, respectively. These indicators are not patient dose, but values generated from the CT scanner acquisition factors. The report includes radiation exposure data for exposures received during this examination. COMPARISON: CT STROKE CTH on DOS: 03/23/24 FINDINGS: There is no evidence of acute intracranial hemorrhage, extra-axial collection, mass effect, midline s hift, herniation or hydrocephalus. The ventricles, sulci and cisterns are age appropriate. The quan-white differentiation is intact. The visualized paranasal sinuses and mastoid air cells are clear. The surrounding soft tissues and osseous structures are unremarkable. IMPRESSION: No acute intracranial abnormality. Radiation optimization: All CT scans at this facility use at least one of these dose optimization kushal hniques: automated exposure control mA and/or kV adjustment per patient size (includes targeted exam s where dose is matched to clinical indication) or iterative reconstruction.
[2024-07-17 16:55] LABS: Glucose 283 mg/dL (74-106)
[2024-07-17] MEDS: SODIUM CHLORIDE 0.9% 1,000 ML IV ONE (18:15)
[2024-07-17 20:28] LABS: Urine Bacteria None Seen /hpf (None Seen)
[2024-07-17 20:49] LABS: Urine Blood Negative /uL (Negative); Urine Clarity Clear (Clear); Urine Color Yellow (Yellow); Urine Mucus FEW (None Seen); Urine Protein, UAD 1+ (Negative); Urine Specific Gravity 1.026 (1.001-1.035); Urine Squamous Epithelial Cell FEW /hpf (<5); Urine Urobilinogen Normal (Negative); Urine WBC 3 /HPF (0-5); Urine pH 5.5 (5.0-9.0)
[2024-07-17 23:38] VITALS: PULSE 68; RESP 16; O2SAT 98
[2024-07-17] MEDS ORDERED: DEXTROSE (50%) 50ML SYRG IV PRN (23:45)
[2024-07-17] MEDS ORDERED: MECLIZINE HCL 25 MG TAB PO PRN (23:45)
[2024-07-17] MEDS ORDERED: ONDANSETRON HCL 4 MG/2 ML VIAL IV PRN (23:45)
[2024-07-17] MEDS ORDERED: ACETAMINOPHEN 325 MG TAB PO PRN (23:45)
--- NOTE | 2024-07-17 23:46 | DVHHPRES ---
History of Present Illness Resident Creating Document: ERNIE AARON RESIDENT History of Present Illness 74-year-old female with past medical history of diabetes and hypertension presented with complaints of dizziness that started yesterday morning, associated with tingling sensation in the right side of the ear and recurrent v omiting. Patient mentioned she had ear infection in March for which she was treated with antibiotics. She also mentioned associated mild right-sided headache. She denied any complaints of chest pain, shortness of breath, diarrhea, constipation Past medical history Diabetes, hypertension Past surgical history No recent surgery Medication history Metformin Allergic history Penicillins Review of Systems Constitutional: No: Fever, Chills, Sweats, Weakness, Malaise, Other Eyes: No: Pain, Vision change, Conjunctivae inflammation, Eyelid inflammation, Other, Redness ENT: Other (tingling senstation in the right ear); No: Ear discharge, Nose pain, Nose discharge, Nose congestion, Mouth pain, Mouth swelling, Throat pain, Throat swelling Respiratory: No: Cough, Dry, Shortness of breath, SOB with excertion, Wheezing, Hemoptysis, Pleuritic Pain, Sputum, Wheezing, Other Cardiovascular: No: Chest Pain, Palpitations, Orthopnea, Paroxysmal Noc. Dyspnea, Edema, Lt Headedness, Other Gastrointestinal: Nausea, Vomiting; No: Abdominal Pain, Diarrhea, Constipation, Melena, Hematochezia, Other Genitourinary: No Dysuria, No Frequency, No Incontinence, No Hematuria, No Retention, No Other Musculoskeletal: No: other, neck pain, shoulder pain, arm pain, back pain, hand pain, leg pain, foot pain Skin: No: Rash, Lesions, Jaundice, Bruising, Other Neurological: No: Weakness, Numbness, Incoordination, Change in speech, Confusion, Seizures, Other Allergies: Coded Allergies: Penicillins (Verified Allergy, Unknown, 03/23/24) Exam Vital Signs Vital Signs Date Time Temp Pulse Resp B/P (MAP) Pulse Ox O2 Delivery O2 Flow Rate FiO2 07/17/24 20:58 97.8 72 16 117/70 (86) 95 97.8 Exam Complete physical examination could not be done because patient was in lobby General Appearance: Oriented X3 HEENT: Other (Patient had mild hearing deficit in the right side) Respiratory: Clear to auscultation Cardiovascular: Regular rate, Normal S1, Normal S2 Abdominal: Soft Labs/Xrays Labs Test 4/9/25 19:50 07/17/24 19:19 07/17/24 16:40 07/17/24 16:16 Range/Units Urine Color Yellow Yellow Urine Clarity Clear Clear Urine pH 5.5 5.0-9.0 Urine Specific [place] 1.026 1.001-1.035 Urine Protein 1+ H Negative Urine Ketones 1+ H Negative Urine Blood Negative Negative /uL Urine Nitrite Negative Negative Urine Bilirubin Negative Negative Urine Urobilinogen Normal Negative mg/dL Urine Leukocyte Esterase Negative Negative /uL Urine RBC 2 0 - 4 /hpf Urine Microscopic WBC 3 0-5 /HPF Urine Squamous Epithelial Cells Few <5 /hpf Urine Bacteria None seen None Seen /hpf Urine Mucus Few None Seen Urine Glucose 4+ H Normal mg/dL Troponin I High Sensitivity 5 </=34 ng/L POC Glucose 260 H 70-106 mg/dl White Blood Count 7.9 4.4-10.8 10^3/uL Red Blood Count 5.07 4.0-5.20 10^6/uL Hemoglobin 15.1 12.2-16.2 g/dL Hematocrit 45.1 36.0-46.0 % Mean Corpuscular Volume 88.9 80.0-100.0 fL Mean Corpuscular Hemoglobin 29.8 28.0-32.0 pg Mean Corpuscular Hemoglobin Concent 33.5 32.0-36.0 g/dL Red Cell Distribution Width 13.9 11.8-14.3 % Platelet Count 226 140-450 10^3/uL Mean Platelet Volume 8.5 6.9-10.8 fL Neutrophils (%) (Auto) 86.6 H 37.0-80.0 % Lymphocytes (%) (Auto) 10.8 10.0-50.0 % Monocytes (%) (Auto) 2.4 0.0-12.0 % Eosinophils (%) (Auto) 0.1 0.0-7.0 % Basophils (%) (Auto) 0.1 0.0-2.0 % Neutrophils # (Auto) 6.9 1.6-8.6 10 ^3/uL Lymphocytes # (Auto) 0.9 0.4-5.4 10 ^3/uL Monocytes # (Auto) 0.2 0-1.3 10 ^3/uL Eosinophils # (Auto) 0 0-0.8 10 ^3/uL Basophils # (Auto) 0 0-0.2 10 ^3/uL Nucleated Red Blood Cells 0.0 % Sodium Level 138 136-145 mmol/L Potassium Level 4.1 3.5-5.1 mmol/L Chloride Level 103 98-107 mmol/L Carbon Dioxide Level 27 20-31 mmol/L Anion Gap 8 5-15 Blood Urea Nitrogen 17 9-23 mg/dL Creatinine 0.83 0.550-1.02 mg/dL Glomerular Filtration Rate Calc 73 >90 mL/min BUN/Creatinine Ratio 20.5 H 10.0-20.0 Serum Glucose 283 H 74-106 mg/dL Lactic Acid Level 1.3 0.4-2.0 mmol/L Calcium Level 10.4 8.7-10.4 mg/dL Magnesium Level 2.0 1.6-2.6 mg/dL Total Bilirubin 0.7 0.2-1.0 mg/dL Aspartate Amino Transferase (AST) 14 13-40 U/L Alanine Aminotransferase (ALT) 14 7-40 U/L Alkaline Phosphatase 111 46-116 U/L B-Type Natriuretic Peptide 39.36 0-100 pg/mL Total Protein 7.5 5.7-8.2 g/dL Albumin 4.7 3.2-4.8 g/dL Assessment/Plan Assessment/Plan Assessment/plan #intractable vomiting with dizziness #Tingling sensation in the Ear with hearing deficit -likely peripheral cause of vertigo including acute labrynthitis/vestibular neuritis/meniers disease -orthostatic vitals -Head CT -TSH, B12, Folate -ondasetron PRN Meclizine PRN #DM2 -mild sliding scale -hbA1c #HTN -low normal BP Case discussion with Dr Heath Plan discussed with: Other My Orders Orders - ERNIE AARON RESIDENT Procedure Category Date Status Time Admit ADMIT 07/17/24 Transmitted 21:58 Oxygen By Nasal RT 07/17/24 Transmitted Cannula 21:58 Stat Ekg For Chest [facility] 07/17/24 In Process Pain 21:58 Notify Of Changes [facility] 07/17/24 In Process From Base 21:58 [employer] [facility] 07/17/24 In Process 24 Hours 21:58 Emergency Dysrhythmia [facility] 07/17/24 In Process Protocol 21:58 Rhythm Strips Once [place] 07/17/24 In Process Every Shift 21:58 Date of Service: Jul 17, 2024 Billing Provider: CRYSTAL HEATH MD Common Visit Codes: 31299-[id number] INP/OBS CARE (HIGH) Secondary Visit Codes: [id number] CARE PLAN 30 MINUTES ERNIE AARON RESIDENT Jul 17, 2024 23:46 CRYSTAL HEATH MD Jul 18, 2024 10:06
[2024-07-17] MEDS: ACCU-CHEK COMFORT CURVE STRIP VI SCH (23:48)
[2024-07-17] MEDS: InsuLIN REG 1unit/0.01ml Soln (100units/ml) SC SCH (23:53)
[2024-07-17] MEDS: MECLIZINE HCL 25 MG TAB PO ONE (23:53)
[2024-07-18] VITALS (9 sets, daily range): BP systolic 91–149; BP diastolic 45–80; PULSE 64–77; RESP 14–18; TEMP 97.9–98.4; O2SAT 95–100
[2024-07-18 01:03] LABS: Folate (Folic Acid) 17.45 ng/mL (>5.38)
--- NOTE | 2024-07-18 12:06 | ECG ---
[facility] Test Date: 2024-07-17 Test Time: 16:46:16 Pat Name: GAYLE ROMANO Department: ER Room: 0223 B Gender: F [employer] Systems Analyst: GP : 1950 Requested By: ANNA MANUEL Order Number: [id number] Reading MD: Bean Campos Measurements Intervals [place] Rate: 94 P: 80 IA: 128 QRS: 72 QRSD: 126 T: 22 QT: 400 QTc: 501 Interpretive Statements Sinus tachycardia Ventricular premature complex Right atrial enlargement Right bundle branch block Artifact in lead(s) I,II,III,aVR,aVL,aVF,V5 Electronically Signed On 07-18-2024 20:56:03 PDT by Bean Campos Please click the below link to view image of tracing.
[2024-07-18] MEDS: SODIUM CHLORIDE 0.9% 1,000 ML IV SCH (12:20)
[2024-07-18] MEDS ORDERED: IOHEXOL 350 MG/ML 100ML IJ ONE (12:39)
--- NOTE | 2024-07-18 14:28 | DVH ---
Procedure: CT ANGIO HEAD/Neck HISTORY: rule out posterior circulation stroke Comparison Study: CT ANGIO HEAD/NECK on DOS: 03/23/24 Exam Date:07/18/2024 12:57 PM TECHNIQUE: CTA head without and with intravenous contrast. CTA neck with intravenous contrast. 3D barbara Netrepid postprocessing was performed and images were used for interpretation and reporting. Radiation Dose : CT Dose: CTDI volume is 32.31 mGy. Dose-length product is 1048.98 mGy*cm FINDINGS: CTA head: There is normal enhancement of the visualized distal internal carotid, anterior and middle cerebral a rteries. There is a normal anterior communicating artery complex. There are bilateral posterior commu nicating arteries. The vertebral, basilar, cerebellar and posterior cerebral arteries are within norm al limits. The early parenchymal enhancement is grossly unremarkable. The visualized intracranial troy ous structures are grossly unremarkable. CTA neck: The visualized thoracic aortic arch and proximal great vessels are unremarkable. The left common, int ernal and external carotid arteries are within normal limits. The right common, internal and external carotid arteries are within normal limits. The cervical segments of the right and left vertebral art eries are within normal limits. The limited visualized lung apices are clear. The surrounding soft ti ssues and osseous structures are otherwise unremarkable. IMPRESSION: No evidence of hemodynamically significant intracranial stenosis, proximal occlusion or aneurysm. No evidence of hemodynamically significant cervical stenosis or dissection. CAROTID STENOSIS REFERENCE Distal internal carotid artery diameter as the denominator for stenosis measurement: MILD = <50% stenosis. MODERATE = 50-69% stenosis. SEVERE = 70-89% stenosis. CRITICAL = 90-99% stenosis. OCCLUDED = 100% stenosis. All CT scans at this medical facility are performed using dose modulation techniques as appropriate t o a performed exam including the following: Automated exposure control was utilized; adjustment of th e MA and/or KV according to patient size; and use of iterative reconstruction technique.
[2024-07-18] MEDS ORDERED: DEXTROSE (50%) 50ML SYRG IV PRN (15:15)
--- NOTE | 2024-07-18 16:50 | DVHPNRES ---
Progress Note Date Seen: Jul 18, 2024 Resident Creating Document: TIM VARGHESE RESIDENT Has the PT tested + for MRSA If YES, has PT been informed?: No Medical Necessity Reason Pt with a Central, PICC or Fol: No Medical Necessity Reason History and Physical 74-year-old female with past medical history of diabetes and hypertension presented with complaints of dizziness that started yesterday morning, associated with tingling sensation in the right side of the ear and recurrent vomiting. Patient mentioned she had ear infection in March for which she was treated with antibiotics. She also mentioned associated mild right-sided headache. She denied any complaints of chest pain, shortness of breath, diarrhea, constipation. Past medical history: Diabetes, hypertension Past surgical history : No recent surgery Medication history: Metformin Allergic history: Penicillins PN 07/18/2024 Patient is a 74 year old female with a past medical history of hypertension and diabetes currently on metformin but does not adhere to the antihypertensive medication. She presented to the ED yesterday after experiencing tinnitus, dizziness and vomiting. According to the patient, her symptoms began on Monday when started having dizziness and tinnitus. By Monday, her symptoms had gotten worse and she started vomiting as well. She reported vomitig at least 4-5 times but subsided at 6:30pm. Patient then presented to the ED for evaluation. Patient denies fever, recent viral infection, diplopia, loss of sense, any trauma to the head any tremors or any previous stroke. Note the patient mentioned that March of 2024 she had an ear infection in her right ear was managed with antibiotics and had resolved. Subjective Review of Systems Constitutional: Denies fever no chills no feeling of malaise, dizziness and tinnitus HEENT: right temporal headache; NO ear pain, ear discharges, conjunctivitis, nasal discharge throat pain Cardiovascular: Denies chest pain, palpitation, orthopnea, PND, or pedal edema Respiratory: Denies shortness of breath, cough cough, sputum production, hemoptysis, GI: Denies abdominal pain, nausea, vomiting, diarrhea, hematemesis, hematochezia, : Denies frequency, urgency, hematuria, Endocrine: Denies unintentional weight gain or weight loss, feeling of hot flashes, Alvin: Denies easy bruising, bleeding disorders, epistaxis Musculoskeletal: Denies joint pains, muscle aches Psych: No evidence of depression, opal, suicidal ideation Objective vital signs Vital Sign Date Time Temp Pulse Resp B/P (MAP) Pulse Ox O2 Delivery O2 Flow Rate FiO2 07/18/24 12:58 98.0 76 17 135/64 (87) 98 98.0 142/69 (93) 141/80 (100) 07/18/24 08:00 Room Air* 0 21 Total Intake and Output 07/17/24 07/17/24 07/18/24 15:00 23:00 07:00 Intake Total 25 ml Balance 25 ml medications Current Medications Medications Dose Ordered Sig/Jesse Route Start Time Stop Time Status Last Admin Dose Admin Diagnostic Test (Pha) 1 strip IQ4HR 07/18/24 00:00 07/18/24 12:01 1 STRIP Insulin Human Regular IQ4HR SC 07/18/24 00:00 07/18/24 12:00 2 UNITS Dextrose 50 ml UD PRN IV 07/17/24 23:45 Ondansetron HCl 4 mg Q6HPRN PRN IV 07/17/24 23:45 Meclizine HCl 12.5 mg [id number] PRN PO 07/17/24 23:45 Acetaminophen 650 mg Q4HP PRN PO 07/17/24 23:45 Sodium Chloride 1,000 ml @ 100 mls/hr Q10H IV 07/18/24 11:15 07/18/24 12:20 100 MLS/HR Examination General Appearance: Alert, Oriented X3, Cooperative, No acute distress HEENT: Atraumatic, PERRLA, EOMI, Mucous membrane moist/pink --> mild hearing loss on the right compared to the left. --> No diplopia --> Bulmaro Hallpike: Negative --> orthostatic negative --> Heel to shIin: negative --> [id number] test: unremarkable --> [id number] test (assess coordination and cerebellar function) unremarkable Respiratory: Clear to auscultation, Normal air movement Cardiovascular: Regular rate, Normal S1, Normal S2, No murmurs, no chest wall tenderness Abdominal: NO distention, no tenderness, bowel sounds present, no scars noted Extremities: No clubbing, No cyanosis, No edema, Normal pulses, No tenderness/swelling Skin: No rashes, No breakdown, No significant lesion Neuro: Normal gait, Normal speech, Strength at 5/5 X4 ext, Normal tone, Sensation intact, Cranial nerves 3-12 NL, Reflexes 2+ Psych/Mental Status: Mental status NL, Mood NL laboratory and microbiology Laboratory Tests 07/17/24 16:16 Test 07/17/24 16:16 Range/Units Serum Glucose 283 H 74-106 mg/dL Problem List/Assessment/Plan Problem List/Assessment/Plan Assessments Possible Meniere's disease --> intractable vomiting with dizziness --> Tinnitus with hearing deficit --> orthostatic vitals --> CT angio head checking for posterior circulation deficit: Unremarkable --> Ondasetron PRN Possible Labyrinthitis --> Tinnitus with hearing deficit -likely peripheral cause of vertigo including acute labrynthitis/vestibular neuritis/meniers disease --> Vomiting --> Meclizine PRN --> symptomatic management Ondasetron PRN Vestibular neuritis less likely Brainstem infarct --> Ruled out --> CT angio head checking for posterior circulation deficit: Unremarkable --> CT head; No acute intracranial abnormality. Uncontrolled diabetes mellitus --> Lantus 10 HS -->mild sliding scale --> HbA1c 9.4 HTN --> ranges between 91/46---142/69 --> No antihypertensive right now. Will continue to monitor Goal of care discussed for more than 25 minutes: Full code Case and plan discussed+ Dr. Ball Plan discussed with: Patient, Other My Orders My Orders Orders - TIM VARGHESE Procedure Category Date Status Time Sodium Chloride 0.9% PHA 07/18/24 In Process 11:15 Angio Head/Neck CT 07/18/24 Resulted 12:18 Consistent DIET 07/18/24 Transmitted Carb(Ccho)Diabetes Dinner Insulin Lantus PHA 07/18/24 Logged (Glargine) (Lantus) 22:00 Glucose Blood PHA 07/18/24 Logged (Accu-Chek Comfort 17:00 Insulin R (Human) PHA 07/18/24 Logged (Insulin R) 17:00 Dextrose 50% Syringe PHA 07/18/24 Logged 15:15 Date of Service: Jul 18, 2024 Billing Provider: STEPHANIE BALL MD Common Visit Codes: [id number] INP/OBS CARE(HIGH) TIM VARGHESE RESIDENT Jul 18, 2024 16:50 STEPHANIE BALL MD Jul 23, 2024 21:23
[2024-07-18] MEDS: ACCU-CHEK COMFORT CURVE STRIP VI SCH (17:00)
[2024-07-18] MEDS: InsuLIN REG 1unit/0.01ml Soln (100units/ml) SC SCH (17:37)
[2024-07-18] MEDS ORDERED: ATOR20TA50 PO (18:21)
[2024-07-18] MEDS ORDERED: METF-370 PO (18:21)
[2024-07-18] MEDS ORDERED: LISI10TA34 PO (18:21)
[2024-07-18] MEDS: INSULIN LANTUS (GLARGINE) 1 /0.01ml (100units/ml) SC SCH (22:53)
[2024-07-19] VITALS (7 sets, daily range): BP systolic 113–140; BP diastolic 47–65; PULSE 67–76; RESP 14–17; TEMP 97.3–98.1; O2SAT 94–100
[2024-07-19 07:05] LABS: Basophils # (auto) 0 10 ^3/uL (0-0.2); Basophils % (auto) 0.5 % (0.0-2.0); Eosinophils # (auto) 0.1 10 ^3/uL (0-0.8); Eosinophils % (auto) 0.7 % (0.0-7.0); Hematocrit 37.9 % (36.0-46.0); Hemoglobin 12.7 g/dL (12.2-16.2); Lymphocytes % (auto) 21.2 % (10.0-50.0); Mean Corpuscular Hemoglobin 30.3 pg (28.0-32.0); Mean Corpuscular Hgb Conc. 33.6 g/dL (32.0-36.0); Mean Corpuscular Volume 90.1 fL (80.0-100.0); Monocytes # (auto) 0.5 10 ^3/uL (0-1.3); Monocytes % (auto) 5.5 % (0.0-12.0); Neutrophils # (auto) 6.8 10 ^3/uL (1.6-8.6); Neutrophils % (auto) 72.1 % (37.0-80.0); Platelet Count (auto) 198 10^3/uL (140-450); White Blood Cell 9.4 10^3/uL (4.4-10.8)
[2024-07-19 07:17] LABS: Anion Gap 9 (5-15); Carbon Dioxide 24 mmol/L (20-31); Potassium 3.6 mmol/L (3.5-5.1); Sodium 142 mmol/L (136-145)
[2024-07-19 07:18] LABS: Calcium 9.5 mg/dL (8.7-10.4)
[2024-07-19 07:20] LABS: Chloride 109 mmol/L (98-107)
[2024-07-19 07:23] LABS: BUN/Creatinine Ratio 22.1 (10.0-20.0); Blood Urea Nitrogen 15 mg/dL (9-23); Glucose 93 mg/dL (74-106)
--- NOTE | 2024-07-19 13:34 | DVHPNRES ---
Progress Note Date Seen: Jul 19, 2024 Resident Creating Document: TIM VARGHESE RESIDENT Has the PT tested + for MRSA If YES, has PT been informed?: No Medical Necessity Reason Pt with a Central, PICC or Fol: No Medical Necessity Reason History and Physical 74-year-old female with past medical history of diabetes and hypertension presented with complaints of dizziness that started yesterday morning, associated with tingling sensation in the right side of the ear and recurrent vomiting. Patient mentioned she had ear infection in March for which she was treated with antibiotics. She also mentioned associated mild right-sided headache. She denied any complaints of chest pain, shortness of breath, diarrhea, constipation. Past medical history: Diabetes, hypertension Past surgical history : No recent surgery Medication history: Metformin Allergic history: Penicillins PN 07/18/2024 Patient is a 74 year old female with a past medical history of hypertension and diabetes currently on metformin but does not adhere to the antihypertensive medication. She presented to the ED yesterday after experiencing tinnitus, dizziness and vomiting. According to the patient, her symptoms began on Monday when started having dizziness and tinnitus. By Monday, her symptoms had gotten worse and she started vomiting as well. She reported vomitig at least 4-5 times but subsided at 6:30pm. Patient then presented to the ED for evaluation. Patient denies fever, recent viral infection, diplopia, loss of sense, any trauma to the head any tremors or any previous stroke. Note the patient mentioned that March of 2024 she had an ear infection in her right ear was managed with antibiotics and had resolved. Subjective Review of Systems Constitutional: Denies fever no chills no feeling of malaise HEENT: Denies headache, ear pain, ear discharges, conjunctivitis, nasal discharge throat pain Cardiovascular: Denies chest pain, palpitation, orthopnea, PND, or pedal edema Respiratory: Denies shortness of breath, cough cough, sputum production, hemoptysis, GI: Denies abdominal pain, nausea, vomiting, diarrhea, hematemesis, hematochezia, : Denies frequency, urgency, hematuria, Endocrine: Denies unintentional weight gain or weight loss, feeling of hot flashes, Alvin: Denies easy bruising, bleeding disorders, epistaxis Musculoskeletal: Denies joint pains, muscle aches Psych: No evidence of depression, opal, suicidal ideation Objective vital signs Vital Sign Date Time Temp Pulse Resp B/P (MAP) Pulse Ox O2 Delivery O2 Flow Rate FiO2 07/19/24 12:55 98.0 72 17 137/59 (85) 100 98.0 07/19/24 08:15 Room Air* 0 21 Total Intake and Output 07/18/24 07/18/24 07/19/24 15:00 23:00 07:00 Intake Total 200 ml 1800 ml Balance 200 ml 1800 ml medications Current Medications Medications Dose Ordered Sig/Jesse Route Start Time Stop Time Status Last Admin Dose Admin Ondansetron HCl 4 mg Q6HPRN PRN IV 07/17/24 23:45 Meclizine HCl 12.5 mg [id number] PRN PO 07/17/24 23:45 Acetaminophen 650 mg Q4HP PRN PO 07/17/24 23:45 Sodium Chloride 1,000 ml @ 100 mls/hr Q10H IV 07/18/24 11:15 07/19/24 00:41 100 MLS/HR Insulin Glargine 10 units HS SC 07/18/24 22:00 07/18/24 22:53 10 UNITS Diagnostic Test (Pha) 1 strip ACHS 07/18/24 17:00 07/19/24 11:42 1 STRIP Insulin Human Regular ACHS SC 07/18/24 17:00 07/19/24 11:42 4 UNITS Dextrose 50 ml UD PRN IV 07/18/24 15:15 Examination Constitutional: Denies fever no chills no feeling of malaise HEENT: Denies headache, ear pain, ear discharges, conjunctivitis, nasal discharge throat pain Cardiovascular: Denies chest pain, palpitation, orthopnea, PND, or pedal edema Respiratory: Denies shortness of breath, cough cough, sputum production, hemoptysis, GI: Denies abdominal pain, nausea, vomiting, diarrhea, hematemesis, hematochezia, : Denies frequency, urgency, hematuria, Endocrine: Denies unintentional weight gain or weight loss, feeling of hot flashes, Alvin: Denies easy bruising, bleeding disorders, epistaxis Musculoskeletal: Denies joint pains, muscle aches Psych: No evidence of depression, opal, suicidal ideation laboratory and microbiology Laboratory Tests 07/19/24 06:24 Test 07/19/24 06:24 Range/Units Serum Glucose 93 74-106 mg/dL Problem List/Assessment/Plan Problem List/Assessment/Plan Assessments Possible Meniere's disease --> intractable vomiting with dizziness --> Tinnitus with hearing deficit --> orthostatic vitals --> CT angio head checking for posterior circulation deficit: Unremarkable --> Ondasetron PRN Possible Labyrinthitis --> Tinnitus with hearing deficit -likely peripheral cause of vertigo including acute labrynthitis/vestibular neuritis/meniers disease --> Vomiting --> Meclizine PRN --> symptomatic management Ondasetron PRN Vestibular neuritis less likely Brainstem infarct --> Ruled out --> CT angio head checking for posterior circulation deficit: Unremarkable --> CT head; No acute intracranial abnormality. Uncontrolled diabetes mellitus --> Lantus 10 HS -->mild sliding scale --> HbA1c 9.4 HTN --> ranges between 91/46---142/69 --> No antihypertensive right now. Will continue to monitor Goal of care discussed for more than 25 minutes: Full code Case and plan discussed+ Dr. Olmstead Plan discussed with: Patient My Orders My Orders Orders - TIM VARGHESE RESIDENT Procedure Category Date Status Time Consistent DIET 07/18/24 Transmitted Carb(Ccho)Diabetes Dinner Insulin Lantus PHA 07/18/24 In Process (Glargine) (Lantus) 22:00 Glucose Blood PHA 07/18/24 In Process (Accu-Chek Comfort 17:00 Insulin R (Human) PHA 07/18/24 In Process (Insulin R) 17:00 Dextrose 50% Syringe PHA 07/18/24 In Process 15:15 Orthostatic Vital ORDERS 07/18/24 Transmitted Signs 16:02 Dietary Evaluation Review Comments: 1. Disagree with current diet, would remove Na2gm restriction for least-restrictive diet possible; consider [employer] cx given texture modification 2. Continue frequent POC BG checks, insulin for correction and glycemic control 3. Encourage continued good oral intakes >75% of meals 4. Pt would likely benefit from outpatient DM counseling w/ [facility] for increased support w/ dietary management given A1c 9.4% Expected Outcomes/Goals: Improved glycemic control, maintain adequate nutrition. TIM VARGHESE RESIDENT Jul 19, 2024 13:34
[2024-07-19] MEDS ORDERED: ONDANSETRON HCL 4 MG/2 ML VIAL IV PRN (13:45)
[2024-07-19] MEDS ORDERED: MECL12.586 PO (15:36)
--- NOTE | 2024-07-19 15:46 | DVHDSRES ---
Discharge Summary Date of Admission Resident Creating Document: TIM VARGHESE RESIDENT Jul 17, 2024 at 21:58 Date of Discharge: Jul 19, 2024 Admitting Diagnosis Tinnitus and dizziness Labs/Diagnostic Data: PATIENT: GAYLE PHILLIPS MACCT: [id number] UNIT: [id number] : 1950 LOC: CENTRAL ROOM / BED: [facility] / B AGE / SEX: 74 / F ADM STATUS: ADM IN SERVICE 1218 ORDERING PHYSICIAN: TIM VARGHESE PROCEDURE(s): [place] - ANGIO HEAD/Neck REASON: rule out posterior circulation stroke ORDER NUMBER(s): [id number], ACCESSION NUMBER(s): [id number] Procedure: CT ANGIO HEAD/Neck HISTORY: rule out posterior circulation stroke Comparison Study: CT ANGIO HEAD/NECK on DOS: 03/23/24 Exam Date:07/18/2024 12:57 PM TECHNIQUE: CTA head without and with intravenous contrast. CTA neck with intravenous contrast. 3D image postprocessing was performed and images were used for interpretation and reporting. Radiation Dose : CT Dose: CTDI volume is 32.31 mGy. Dose-length product is 1048.98 mGy*cm FINDINGS: CTA head: There is normal enhancement of the visualized distal internal carotid, anterior and middle cerebral arteries. There is a normal anterior communicating artery complex. There are bilateral posterior communicating arteries. The vertebral, basilar, cerebellar and posterior cerebral arteries are within normal limits. The early parenchymal enhancement is grossly unremarkable. The visualized intracranial venous structures are grossly unremarkable. CTA neck: The visualized thoracic aortic arch and proximal great vessels are unremarkable. The left common, internal and external carotid arteries are within normal limits. The right common, internal and external carotid arteries are within normal limits. The cervical segments of the right and left vertebral arteries are within normal limits. The limited visualized lung apices are clear. The surrounding soft tissues and osseous structures are otherwise unremarkable. IMPRESSION: No evidence of hemodynamically significant intracranial stenosis, proximal occlusion or aneurysm. No evidence of hemodynamically significant cervical stenosis or dissection. CAROTID STENOSIS REFERENCE Distal internal carotid artery diameter as the denominator for stenosis measurement: MILD = <50% stenosis. MODERATE = 50-69% stenosis. SEVERE = 70-89% stenosis. CRITICAL = 90-99% stenosis. OCCLUDED = 100% stenosis. All CT scans at this medical facility are performed using dose modulation techniques as appropriate to a performed exam including the following: Automated exposure control was utilized; adjustment of the MA and/or KV according to patient size; and use of iterative reconstruction technique. ATED BY: POP MIRELES MD DICTATED DATE/TIME: 07/18/24 1425 PATIENT: GAYLE PHILLIPS MACCT: [id number] UNIT: [id number] : 1950 LOC: ER ROOM / BED: / AGE / SEX: 74 / F ADM STATUS: REG ER SERVICE 1557 ORDERING PHYSICIAN: ANNA MANUEL DO PROCEDURE(s): HWOCT - HEAD WITHOUT CONTRAST REASON: weak/dizzy/n/v ORDER NUMBER(s): [id number], ACCESSION NUMBER(s): [id number] EXAM: CT HEAD WITHOUT CONTRAST INDICATION: weak/dizzy/n/v TECHNIQUE: CT of the head without intravenous contrast. Radiation Dose : 1. Head: CT Dose: CTDI volume is 51 mGy. Dose-length product is 101 mGy*cm The dose indicators for CT are the volume Computed Tomography (CT) Dose Index (CTDIvol) and the Dose Length Product (DLP), and are measured in units of mGy and mGy-cm, respectively. These indicators are not patient dose, but values generated from the CT scanner acquisition factors. The report includes radiation exposure data for exposures received during this examination. COMPARISON: CT STROKE CTH on DOS: 03/23/24 FINDINGS: There is no evidence of acute intracranial hemorrhage, extra-axial collection, mass effect, midline shift, herniation or hydrocephalus. The ventricles, sulci and cisterns are age appropriate. The quan-white differentiation is intact. The visualized paranasal sinuses and mastoid air cells are clear. The surrounding soft tissues and osseous structures are unremarkable. IMPRESSION: No acute intracranial abnormality. Radiation optimization: All CT scans at this facility use at least one of these dose optimization techniques: automated exposure control mA and/or kV adjustment per patient size (includes targeted exams where dose is matched to clinical indication) or iterative reconstruction. ATED BY: BENY LANIER MD DICTATED DATE/TIME: 07/17/24 1644 PATIENT: GAYLE PHILLIPS MACCT: [id number] UNIT: [id number] : 1950 LOC: ER ROOM / BED: / AGE / SEX: 74 / F ADM STATUS: REG ER SERVICE 1557 ORDERING PHYSICIAN: ANNA MANUEL DO PROCEDURE(s): CXRP - CHEST PORTABLE REASON: weak/dizzy/n/v ORDER NUMBER(s): [id number], ACCESSION NUMBER(s): [id number] CHEST RADIOGRAPH Indication: weak/dizzy/n/v Technique: Single frontal view of the chest was obtained COMPARISON: XY CHEST PORTABLE on DOS: 03/23/24 FINDINGS: Lines and Tubes: None Lungs: Clear Pleura: No effusion. No pneumothorax. Cardiomediastinal contours: Unremarkable Bones: Unremarkable IMPRESSION: No acute disease. ATED BY: BENY LANIER MD DICTATED DATE/TIME: 07/17/24 1638 Laboratory Results Test 07/19/24 11:31 07/19/24 06:24 07/18/24 00:15 07/17/24 19:50 POC Glucose 236 mg/dl (70-106) White Blood Count 9.4 10^3/uL (4.4-10.8) Red Blood Count 4.20 10^6/uL (4.0-5.20) Hemoglobin 12.7 g/dL (12.2-16.2) Hematocrit 37.9 % (36.0-46.0) Mean Corpuscular Volume 90.1 fL (80.0-100.0) Mean Corpuscular Hemoglobin 30.3 pg (28.0-32.0) Mean Corpuscular Hemoglobin Concent 33.6 g/dL (32.0-36.0) Red Cell Distribution Width 14.0 % (11.8-14.3) Platelet Count 198 10^3/uL (140-450) Mean Platelet Volume 8.3 fL (6.9-10.8) Neutrophils (%) (Auto) 72.1 % (37.0-80.0) Lymphocytes (%) (Auto) 21.2 % (10.0-50.0) Monocytes (%) (Auto) 5.5 % (0.0-12.0) Eosinophils (%) (Auto) 0.7 % (0.0-7.0) Basophils (%) (Auto) 0.5 % (0.0-2.0) Neutrophils # (Auto) 6.8 10 ^3/uL (1.6-8.6) Lymphocytes # (Auto) 2.0 10 ^3/uL (0.4-5.4) Monocytes # (Auto) 0.5 10 ^3/uL (0-1.3) Eosinophils # (Auto) 0.1 10 ^3/uL (0-0.8) Basophils # (Auto) 0 10 ^3/uL (0-0.2) Nucleated Red Blood Cells 0.0 % Sodium Level 142 mmol/L (136-145) Potassium Level 3.6 mmol/L (3.5-5.1) Chloride Level 109 mmol/L (98-107) Carbon Dioxide Level 24 mmol/L (20-31) Anion Gap 9 (5-15) Blood Urea Nitrogen 15 mg/dL (9-23) Creatinine 0.68 mg/dL (0.550-1.02) Glomerular Filtration Rate Calc 91 mL/min (>90) BUN/Creatinine Ratio 22.1 (10.0-20.0) Serum Glucose 93 mg/dL (74-106) Calcium Level 9.5 mg/dL (8.7-10.4) Hemoglobin A1c 9.4 % A1C (<5.7) Troponin I High Sensitivity 5 ng/L (</=34) Vitamin B12 Level 804 pg/mL (211-911) Folic Acid 17.45 ng/mL (>5.38) Thyroid Stimulating Hormone (TSH) 1.11 uIU/mL (0.55-4.78) Urine Color Yellow (Yellow) Urine Clarity Clear (Clear) Urine pH 5.5 (5.0-9.0) Urine Specific [place] 1.026 (1.001-1.035) Urine Protein 1+ (Negative) Urine Ketones 1+ (Negative) Urine Blood Negative /uL (Negative) Urine Nitrite Negative (Negative) Urine Bilirubin Negative (Negative) Urine Urobilinogen Normal mg/dL (Negative) Urine Leukocyte Esterase Negative /uL (Negative) Urine RBC 2 /hpf (0 - 4) Urine Microscopic WBC 3 /HPF (0-5) Urine Squamous Epithelial Cells Few /hpf (<5) Urine Bacteria None seen /hpf (None Seen) Urine Mucus Few (None Seen) Urine Glucose 4+ mg/dL (Normal) Test 07/17/24 16:16 Lactic Acid Level 1.3 mmol/L (0.4-2.0) Magnesium Level 2.0 mg/dL (1.6-2.6) Total Bilirubin 0.7 mg/dL (0.2-1.0) Aspartate Amino Transferase (AST) 14 U/L (13-40) Alanine Aminotransferase (ALT) 14 U/L (7-40) Alkaline Phosphatase 111 U/L (46-116) B-Type Natriuretic Peptide 39.36 pg/mL (0-100) Total Protein 7.5 g/dL (5.7-8.2) Albumin 4.7 g/dL (3.2-4.8) Other Laboratory Tests 07/19/24 06:24 Brief Hx & Hospital Course: History and Physical 74-year-old female with past medical history of diabetes and hypertension presented with complaints of dizziness that started yesterday morning, associated with tingling sensation in the right side of the ear and recurrent vomiting. Patient mentioned she had ear infection in March for which she was treated with antibiotics. She also mentioned associated mild right-sided headache. She denied any complaints of chest pain, shortness of breath, diarrhea, constipation. Past medical history: Diabetes Mellitus, hypertension Past surgical history : No recent surgery Medication history: Metformin Allergic history: Penicillins PN 07/18/2024 Patient is a 74 year old female with a past medical history of hypertension and diabetes currently on metformin but does not adhere to the antihypertensive medication. She presented to the ED on 07/17/2024 after experiencing tinnitus, dizziness and vomiting. She denies fever, recent viral infection, diplopia, loss of sense, head trauma and previous stroke. Of note, patient mentioned that in March of 2024 she had an ear infection in her right ear was managed with antibiotics and had resolved. Examination findings were negative for BPPV, stroke and imaging studies showed evidence of hemodynamically significant intracranial stenosis, proximal occlusion or aneurysm. evidence of hemodynamically significant cervical stenosis or dissection. Patient is managed for Meniere's disease versus labyrinthitis, which is usually symptomatic management. She was also managed for her diabetes and they hypertension. Patient received fluid, insulin (basal and bolus) and Meclizine. She reported filing better today less dizziness slightly improved. Therefore we will discharge her home on medication and symptomatic management medications. Patient advised to follow up at the discharge clinic in 7 days and continue care with her PCP. Review of symptoms Constitutional: Denies fever no chills no feeling of malaise HEENT: Denies headache, ear pain, ear discharges, conjunctivitis, nasal discharge throat pain Cardiovascular: Denies chest pain, palpitation, orthopnea, PND, or pedal edema Respiratory: Denies shortness of breath, cough cough, sputum production, hemoptysis, GI: Denies abdominal pain, nausea, vomiting, diarrhea, hematemesis, hematochezia, : Denies frequency, urgency, hematuria, Endocrine: Denies unintentional weight gain or weight loss, feeling of hot flashes, Alvin: Denies easy bruising, bleeding disorders, epistaxis Musculoskeletal: Denies joint pains, muscle aches Psych: No evidence of depression, opal, suicidal ideation Examination General Appearance: Alert, Oriented X3, Cooperative, No acute distress HEENT: Atraumatic, PERRLA, EOMI, Mucous membrane moist/pink Respiratory: Clear to auscultation, Normal air movement Cardiovascular: Regular rate, Normal S1, Normal S2, No murmurs, no chest wall tenderness Abdominal: NO distention, no tenderness, bowel sounds present, no scars noted Extremities: No clubbing, No cyanosis, No edema, Normal pulses, No tenderness/swelling Skin: No rashes, No breakdown, No significant lesion Neuro: Normal gait, Normal speech, Strength at 5/5 X4 ext, Normal tone, Sensation intact, Cranial nerves 3-12 NL, Reflexes 2+, Mild dizziness noted Psych/Mental Status: Mental status NL, Mood NL Diagnoses Possible Meniere's disease Possible Labyrinthitis Vestibular neuritis less likely Brainstem infarct ruled out Uncontrolled diabetes mellitus, HbA1c 9.4 HTN Discharges plan Home with Meclizine 12.5mg BID Symptomatic treatment Continue metformin, Check fasting glucose and have a fbs diary Continue Lisinopril Follow up at the discharge clinic Discharge plans discussed + Dr. Flores Condition at Discharge: Stable Final Diagnosis/Problems List Possible Meniere's disease Possible Labyrinthitis Vestibular neuritis less likely Brainstem infarct ruled out Uncontrolled diabetes mellitus,HbA1c 9.4 HTN Discharge Disposition: Home Discharge Instruct/Medications Diet: See Comment Diet comment: Diabetic diet Activity: No Restrictions, As Tolerated Follow Up/Referral: 1 week at the discharge clinic Medications: Meclizine Discharge Statement: "Patient was advised to return to the ER or call 911 if any headaches, dizziness, shortness of breath, chest pain, abdominal pain, bleeding, fevers, or worsening of medical condition. Patient was counseled about treatment plan, medications, possible side effects, patientverbalized understanding. All questions were answered to the best of my ability. This discharge took greater then 30 minutes in planning, reviewing documentation, counseling the patient, and discussing with other team members." ASSESSMENT ASSESSMENT Assessment Possible Meniere's disease Possible Labyrinthitis Vestibular neuritis less likely Brainstem infarct Uncontrolled diabetes mellitus,HbA1c 9.4 HTN Date of Service: Jul 19, 2024 Billing Provider: STEPHANIE BALL MD Common Visit Codes: 10027-OJS/OBS DISCH DAY >30min TIM VARGHESE Jul 19, 2024 15:46 STEPHANIE BALL MD Jul 23, 2024 20:11
[2024-07-19] MEDS: MECLIZINE HCL 25 MG TAB PO SCH (16:00)
== END 2024-07-19 18:40 | disposition home or self-care (01) | DRG 149 ==
LOC: ER 15:46 → OVERFLOW 21:58 → CENTRAL 23:54
PROVIDERS: ADMIT Student in an Organized Health Care Education/Training Program; ATTEND Student in an Organized Health Care Education/Training Program
DX: H81.01 Meniere's disease, right ear (principal); E11.9 Type 2 diabetes mellitus without complications; I10 Essential (primary) hypertension; H93.11 Tinnitus, right ear; H83.01 Labyrinthitis, right ear; Z88.0 Allergy status to penicillin; Z79.899 Other long term (current) drug therapy
CPT/HCPCS: 36415; 70450; 70496; 70498; 71045; 80048; 80053; 81001; 82607; 82746; 82962; 83036; 83605; 83735; 83880; 84443; 84484; 85025; 86850; 86900; 86901; 93005; 96360; 96361; G0378; J1815

== ENCOUNTER 2024-11-28 09:55 | Outpatient (CLI) | payer MEDICAID ==
[~2024-11-28 09:55] MED LIST changes: +ATOR20TA50 PO; -CEPH500C PO; +LISI10TA34 PO; +MECL12.586 PO; +METF-370 PO
[2024-11-28 10:34] LABS: Hematocrit 40.5 % (36.0-46.0); Hemoglobin 13.5 g/dL (12.2-16.2); Mean Corpuscular Hemoglobin 29.3 pg (28.0-32.0); Mean Corpuscular Volume 87.8 fL (80.0-100.0); Nucleated Red Blood Cells % 0.0 %
[2024-11-28 10:53] LABS: Alanine Aminotransferase 12 U/L (7-40); Albumin 4.4 g/dL (3.2-4.8); Alkaline Phosphatase 87 U/L (46-116); Anion Gap 8 (5-15); BUN/Creatinine Ratio 17.1 (10.0-20.0); Bilirubin, Total 0.8 mg/dL (0.2-1.0); Blood Urea Nitrogen 13 mg/dL (9-23); Calcium 9.7 mg/dL (8.7-10.4); Carbon Dioxide 29 mmol/L (20-31); Chloride 104 mmol/L (98-107); Cholesterol 178 mg/dL (< 200); Glucose 169 mg/dL (74-106); HDL Cholesterol 58 mg/dL (40-59); Potassium 4.2 mmol/L (3.5-5.1); Sodium 141 mmol/L (136-145); Total Protein 6.7 g/dL (5.7-8.2); Triglycerides 101 mg/dL (< 150)
== END 2024-11-28 17:00 | disposition home or self-care (01) ==
LOC: LAB 09:55
PROVIDERS: ATTEND Specialist
DX: I12.9 Hypertensive chronic kidney disease with stage 1 through stage 4 chronic kidney disease, or unspecified chronic kidney disease (principal); E11.22 Type 2 diabetes mellitus with diabetic chronic kidney disease; E11.3313 Type 2 diabetes mellitus with moderate nonproliferative diabetic retinopathy with macular edema, bilateral; E11.65 Type 2 diabetes mellitus with hyperglycemia; N18.30 Chronic kidney disease, stage 3 unspecified; E78.5 Hyperlipidemia, unspecified; H35.00 Unspecified background retinopathy
CPT/HCPCS: 36415; 80053; 80061; 82043; 83036; 85025